=== PATIENT | female | born 2000 | race Hispanic/Latino ===

== ENCOUNTER 2019-11-07 10:59 | Inpatient (IN) | payer MEDICAID ==
[~2019-11-07] VITALS: Ht 160 cm; Wt 87.1 kg
[2019-11-07] MEDS ORDERED: DINOPROSTONE 10 MG VAGINAL SUPP VG SCH (17:30)
[2019-11-07 17:56] LABS: HEMATOCRIT 39.5 % (36-48); MEAN CORPUSCULAR HEMOGLOBIN 29.3 pg (27.0-33.0); MEAN CORPUSCULAR HGB CONC 32.9 g/dL (32.0-36.0); RED BLOOD CELL COUNT(AUTO) 4.44 MIL/uL (4.00-5.50); RED CELL DISTRIBUTION WIDTH 14.6 % (11.0-15.5); WHITE BLOOD COUNT (AUTO) 11.4 K/uL (4.8-10.8)
[2019-11-07 17:57] LABS: APPEARANCE,URINE Clear (CLEAR); BILIRUBIN,URINE Negative (NEGATIVE); COLOR,URINE Yellow (YELLOW); GLUCOSE, URINE (UA) Negative (NEGATIVE); KETONES,URINE 15 mg/dL (NEGATIVE); LEUKOCYTE ESTERASE ,URINE Trace (NEGATIVE); NITRATE,URINE Negative (NEGATIVE); OCCULT BLOOD,URINE Negative (NEGATIVE); PH,URINE 5.5 (5.0-8.0); PROTEIN,URINE Negative (NEGATIVE)
[2019-11-07 18:04] LABS: RBC,URINE 0-1 /HPF (0-1)
[2019-11-07 18:05] LABS: BACTERIA,URINE Few /HPF (None Seen); SQUAMOUS EPITHELIAL CELL,UR Few /HPF (0-2)
[2019-11-07 20:17] VITALS: BP 109/74
[2019-11-07] MEDS ORDERED: MORPHINE SULFATE 10 MG/ML 1ML SYG IM SCH (21:00)
[2019-11-07] MEDS ORDERED: MORPHINE SULFATE 10 MG/ML 1ML VIAL IM SCH (21:45)
[2019-11-07] MEDS: LACTATED RINGERS 1000ML 1,000 ML IV PRN (23:06)
[2019-11-08] MEDS: LACTATED RINGERS 1000ML 1,000 ML IV PRN (04:31)
[2019-11-08] MEDS: OXYTOCIN-LR 20 UNITS/1000 ML 1,000 ML IV SCH ×2 (04:31→18:13)
[2019-11-08] MEDS ORDERED: OXYTOCIN 10 USP UNITS/ML 20 UNIT in LACTATED RINGERS 1000ML 1,000 ML IV SCH (07:00)
[2019-11-08 09:34] LABS: RAPID PLASMA REAGIN NONREACTIVE (NONREACTIVE)
[2019-11-08] MEDS ORDERED: MEPERIDINE-PF 50 MG/ML SYG IVP SCH (11:30)
[2019-11-08] MEDS ORDERED: PROMETHAZINE HCL 25 MG/ML 1ML AMPULE IM SCH (11:30)
[2019-11-08] MEDS ORDERED: ROPIVACAINE 0.2% 100ML VIAL 100 ML EP SCH (11:30)
[2019-11-08] MEDS ORDERED: LACTATED RINGERS 500 ML 500 ML IV PRN (11:30)
[2019-11-08] MEDS ORDERED: EPHEDRINE SULFATE 50 MG/ML AMPULE IVP PRN (11:30)
[2019-11-08] MEDS ORDERED: NALOXONE HCL 0.4 MG/1 ML ML IV PRN (11:30)
[2019-11-08] MEDS ORDERED: MEPERIDINE-PF 50 MG/ML SYG ONE (11:35)
[2019-11-08] MEDS ORDERED: WITCH HAZEL 1 PAD TP PRN (18:15)
[2019-11-08] MEDS ORDERED: ACETAMINOPHEN 325 MG TAB PO PRN (18:15)
[2019-11-08] MEDS ORDERED: OXYTOCIN-LR 20 UNITS/1000 ML 1,000 ML IV SCH (18:15)
[2019-11-08] MEDS ORDERED: MEASLES/MUMPS/RUBELLA VACCINE, LIVE 0.5 ML/VIAL SQ PRN (18:15)
[2019-11-08] MEDS ORDERED: BENZOCAINE/LANOLIN/ALOE VERA 60 ML AEROSOL TP PRN (18:15)
[2019-11-08] MEDS ORDERED: ACETAMINOPHEN-CODEINE 300/30MG TAB PO PRN (18:15)
[2019-11-08] MEDS ORDERED: LANOLIN 30GM OINTMENT TP PRN (18:15)
[2019-11-08] MEDS: DOCUSATE SODIUM 100 MG CAP PO SCH (21:52)
[2019-11-08 23:16] VITALS: BP 124/71
--- NOTE | 2019-11-08 23:30 | NUR ---
Report received from Bud Estevez, RAQUEL; Patient came in via wheelchair accompanied by Bud Farr, head of sales promotion and Bud Estevez, RN. She has an IV of LR with 20 units Pitocin infusing well regulated at 125 ml/hour. Fundus firm at the level of umbilicus. Plan of care discussed with patient she verbalizes understanding.
[2019-11-08 23:51] VITALS: BP 122/72
[2019-11-09] MEDS: IBUPROFEN 600 MG TABLET PO PRN ×2 (00:06→09:25)
[2019-11-09] MEDS ORDERED: PREN-66 PO (01:11)
[2019-11-09 02:54] VITALS: BP 97/58
[2019-11-09 07:15] VITALS: BP 113/79
[2019-11-09] MEDS: DOCUSATE SODIUM 100 MG CAP PO SCH (09:23)
[2019-11-09 11:17] VITALS: BP 116/63
--- NOTE | 2019-11-09 12:15 | NUR ---
DR. JUAN ROUNDED AND DISCHARGE PATIENT TO HOME. PATIENT TO FOLLOW UP IN CLINIC IN ONE WEEK.
[2019-11-09 16:10] VITALS: BP 119/57
--- NOTE | 2019-11-09 18:05 | NUR ---
PATIENT WAS TAKEN VIA W/C TO FAMILY VEHICLE HOLDING BABY IN ARMS. PATIENT IS STABLE AND DENIES PAIN.
[2019-11-11 08:11] LABS: HEPATITIS Bs ANTIGEN SCREEN P Negative (Negative)
== END 2019-11-09 18:05 | disposition home or self-care (01) | DRG 560 ==
LOC: INTOOBSV 17:09 → LDH 17:09 → OBSVTOIN 17:09 → WSH 11-08 23:08
PROC: 10E0XZZ Delivery of Products of Conception, External Approach (ICD-10-PCS; principal; 2019-11-08)
PROC: 3E0234Z Introduction of Serum, Toxoid and Vaccine into Muscle, Percutaneous Approach (ICD-10-PCS; 2019-11-08)
PROC: 3E0R3BZ Introduction of Anesthetic Agent into Spinal Canal, Percutaneous Approach (ICD-10-PCS; 2019-11-08)
PROC: 00HU33Z Insertion of Infusion Device into Spinal Canal, Percutaneous Approach (ICD-10-PCS; 2019-11-08)
PROC: 3E033VJ Introduction of Other Hormone into Peripheral Vein, Percutaneous Approach (ICD-10-PCS; 2019-11-08)
DX: O80 Encounter for full-term uncomplicated delivery (principal); Z37.0 Single live birth; Z23 Encounter for immunization; Z83.3 Family history of diabetes mellitus; Z3A.39 39 weeks gestation of pregnancy
CPT/HCPCS: 36415; 81001; 85027; 86592; 86701; 86850; 86900; 86901; 87340; 87390; 90707; A4314; G0378; J2175; J2270; J2590; J2795; J7120